=== PATIENT | female | born 1960 | race Caucasian/White ===

== ENCOUNTER → 2019-01-23 | Outpatient (REF) ==
[~2019-01-23] MED LIST: AMOXICILLIN500 MG PO; CLARITHROMYC500 MG PO; CYANOCOBALAM1000 MCG IM; DIFLUCAN150 MG OR; FERROUS SULF325 M3 PO; FLEXERIL OR; FOLIC ACID1 MG OR; IMITREX50 MG PO; LORTAB 10 OR; MELOXICAM15 MG OR; NEURONTIN300 MG OR; PROTONIX40 MG OR; PROVERA2.5 MG OR; TOPROL XL25 MG OR; XANAX0.25 MG OR; ZOVIRAX51 EX
== END | disposition home or self-care (01) | DRG 642 ==
LOC: LAB 09:17
PROVIDERS: ATTEND Internal Medicine
DX: E78.2 Mixed hyperlipidemia (principal); E11.9 Type 2 diabetes mellitus without complications; E03.9 Hypothyroidism, unspecified; I10 Essential (primary) hypertension

== ENCOUNTER 2020-02-25 | Emergency (ER) | payer OTHER ==
[2020-02-25] MEDS ORDERED: AMOXICILLIN500 MG PO (13:49)
[2020-02-25 14:27] LABS: HEMATOCRIT 34.1 % (37.0-47.0); HEMOGLOBIN 11.4 g/dl (12.0-16.0); IMMATURE GRANULOCYTES 0.2 % (0.0-5.0); MEAN CELL VOLUME 89.3 fL CALC (80.0-100.0); MEAN CORPUSCULAR HGB 29.8 pG CALC (26.0-32.0); MEAN CORPUSCULAR HGB CONC 33.4 g/dL CAL (32.0-36.0); NEUT# 2.34 thou/uL (2.00-7.15); RED BLOOD COUNT 3.82 mill/uL (4.20-5.60)
[2020-02-25 14:41] LABS: ANION GAP 16 (6-22 (CALC)); BUN 5 mg/dL (7-17); BUN/CREATININE RATIO 7 (12-20 (CALC)); CHLORIDE 104 mmol/l (95-108); CREATININE 0.8 mg/dL (0.5-1.0); GFR > 60 ML/MIN (>=60 (CALC)); GFR FOR AFR.AMER. > 60 ML/MIN (>=60 (CALC)); POTASSIUM 3.7 mmol/l (3.5-5.1); SODIUM 140 mmol/l (137-146)
[2020-02-25 14:45] LABS: CARBON DIOXIDE 24 mmol/l (22-30)
[2020-02-25] MEDS ORDERED: OMNICEF300 M1 PO (15:50)
== END 2020-02-25 16:02 | disposition home or self-care (01) | DRG 156 ==
PROVIDERS: Family Medicine
DX: K11.9 Disease of salivary gland, unspecified (principal); J02.9 Acute pharyngitis, unspecified
CPT/HCPCS: Q9967

== ENCOUNTER 2020-03-04 | Emergency (ER) | payer OTHER ==
[~2020-03-04] MED LIST changes: +OMNICEF300 M1 PO
[2020-03-04] MEDS ORDERED: CLEOCIN300 MG PO (16:44)
== END 2020-03-04 16:50 | disposition home or self-care (01) | DRG 156 ==
DX: K11.9 Disease of salivary gland, unspecified (principal)

== ENCOUNTER 2020-03-10 | Emergency (ER) | payer OTHER ==
[~2020-03-10] MED LIST changes: +CLEOCIN300 MG PO
[2020-03-10 17:07] LABS: HEMATOCRIT 30.9 % (37.0-47.0); HEMOGLOBIN 10.4 g/dl (12.0-16.0); IMMATURE GRANULOCYTES 0.2 % (0.0-5.0); MEAN CORPUSCULAR HGB 29.3 pG CALC (26.0-32.0); MEAN CORPUSCULAR HGB CONC 33.7 g/dL CAL (32.0-36.0); NEUT# 2.93 thou/uL (2.00-7.15); RED BLOOD COUNT 3.55 mill/uL (4.20-5.60)
[2020-03-10 17:25] LABS: ALBUMIN 3.9 g/dL (3.2-5.0); ALKALINE PHOSPHATASE 74 u/l (38-126); BILIRUBIN, TOTAL 0.4 mg/dL (0.0-1.4); BUN 5 mg/dL (7-17); BUN/CREATININE RATIO 7 (12-20 (CALC)); CHLORIDE 103 mmol/l (95-108); CREATININE 0.7 mg/dL (0.5-1.0); GFR > 60 ML/MIN (>=60 (CALC)); GFR FOR AFR.AMER. > 60 ML/MIN (>=60 (CALC)); SODIUM 140 mmol/l (137-146); TOTAL PROTEIN 6.6 g/dL (6.3-8.2)
[2020-03-10 17:33] LABS: ANION GAP 10 (6-22 (CALC)); CARBON DIOXIDE 30 mmol/l (22-30); SGOT/AST 26 u/l (14-36)
[2020-03-10] MEDS ORDERED: MEDDOSEPAK PO (18:22)
== END 2020-03-10 19:30 | disposition home or self-care (01) | DRG 153 ==
DX: J02.9 Acute pharyngitis, unspecified (principal); K21.9 Gastro-esophageal reflux disease without esophagitis
CPT/HCPCS: Q9967

== ENCOUNTER 2023-06-15 08:06 | Emergency (ER) | payer OTHER ==
[~2023-06-15] VITALS: Ht 162.6 cm; Wt 72.6 kg
[~2023-06-15 08:06] MED LIST changes: +MEDDOSEPAK PO
[2023-06-15 08:18] VITALS: BP 150/77
[2023-06-15 08:31] VITALS: BP 136/70
[2023-06-15] MEDS ORDERED: OFLOXACIN0.3 % OD (08:31)
[2023-06-15 08:43] VITALS: BP 136/70
== END 2023-06-15 08:35 | disposition home or self-care (01) | DRG 125 ==
LOC: ED 08:06
DX: H10.9 Unspecified conjunctivitis (principal)